=== PATIENT | female | born 1955 | race Caucasian/White ===

== ENCOUNTER 2017-01-18 10:39 | Observation (INO) | payer SELFPAY ==
[~2017-01-18] VITALS: Ht 170.2 cm; Wt 107.5 kg
--- NOTE | ~2017-01-18 | DS ---
Discharge Summary [facility] [address] [place]. [address] NAME: ADDIE GUSMAN : 53 STATUS : DIS Derrick PAT#: [id number] AGE: 61 ADM/REG DATE : 01/18/17 MR#: [id number] REPORT SERV DATE: 01/21/17 DICTATED BY: RACHEL DANG DATE: 01/20/17 REPORT STATUS : Draft TRANSCRIBED BY: ROSANGELA DATE: 01/20/17 ADMISSION DATE: 01/18/2017 DISCHARGE DATE: 01/20/2017 HISTORY OF PRESENT ILLNESS: Ms. Gusman is a 61-year-old female with a history of diabetes type 2, hypertension, major depression who presented to the hospital with a complaint of confusion. For further details, please refer to H and P dictated by Dr. Walls on 01/18/2017. HOSPITAL COURSE: Upon presentation to the emergency room given the patient's presenting symptoms, a MRI was obtained which was negative. The patient did also complain of lower extremity pain, prompting a bilateral Doppler ultrasound of lower extremities, which also came back normal. The patient also had a chest CT and pelvis without contrast, which also came back normal. The patient was started on IV fluids and given thiamin and started on her home medications with resolution of her confusion. Her potassium was repleted with resultant correction of her hypokalemia. The patient has remained hemodynamically stable. Given her hemodynamic stability and resolution of presenting symptoms, the patient will be discharged home to follow up with primary care physician. Plan has been discussed with the patient who voices understanding and is agreeable with that plan. DISCHARGE DIAGNOSES: 1. Acute encephalopathy. 2. Major depression. 3. Hypokalemia. 4. Rheumatoid arthritis. 5. Congestive heart failure. 6. Obesity. DISCHARGE MEDICATIONS: The patient's home medications were continued without the addition of any new medications. DISPOSITION: The patient will be discharged to home. ACTIVITY: As tolerated. DIET: Diabetic diet. Greater than 30 minutes was spent discharging the patient. TALIA Rachel Dang MD Discharge Summary [facility] [address] [place]. [address] NAME: ADDIE GUSMAN : 53 STATUS : DIS Derrick PAT#: [id number] AGE: 61 ADM/REG DATE : 01/18/17 MR#: [id number] REPORT SERV DATE: 01/21/17 DICTATED BY: RACHEL DANG DATE: 01/20/17 REPORT STATUS : Draft TRANSCRIBED BY: MODL DATE: 01/20/17 / [id number] CC: Rachel Dang MD
--- NOTE | ~2017-01-18 | HP ---
History And Physical [place] [id number] [facility] [place]. [address] NAME: ADDIE BENAVIDEZ : 53 STATUS : ADM Derrick PAT#: [id number] AGE: 61 ADM/REG DATE : 01/18/17 MR#: [id number] REPORT SERV DATE: 01/19/17 DICTATED BY: MOHAMUD NICOLE DATE: 01/18/17 REPORT STATUS : Draft TRANSCRIBED BY: MODJud DATE: 01/18/17 DATE OF ADMISSION: 01/18/2017 CHIEF COMPLAINT: Confusion. HISTORY OF PRESENT ILLNESS: This is a 61-year-old female with medical history of hypertension, major depression, mood disorder, chronic congestive heart failure, rheumatoid arthritis, who presented to the emergency department with complaints of confusion of a week duration. The patient reports having difficulty remembering months and days of the week, and also family members have noted that she was unable to remember her date and she continues to mix up a social security number with telephone number. She denies any similar previous episodes. She denies any slurred speech, aphasia, hypertension, or upper and lower extremity weakness. She denies any recent fall. The patient reports that she stopped taking all her medications about a week ago. The patient reports that she has been feeling very sad and depressed lately. She denies any suicidal or homicidal ideation. The patient reports intermittent episodes of nausea, diarrhea but denies vomiting. No eating of any strange food precipitating the episodes of diarrhea. Prior to presentation to the hospital, she reports that she has had diarrhea, progressively improved. She denies any fevers. She denies any abdominal pain. On arrival to the emergency room department, the patient was noticed to be only oriented x2. Per the ER physician, the patient was unable to remember time and place. The patient was unable to remember the days of the week. The patient's daughter was at the bedside who corroborated the above history. The hospitalist team was consulted to admit the patient for further evaluation. PAST MEDICAL HISTORY: 1. Hypertension. 2. Dyslipidemia. 3. Major depression. 4. Mood disorder. 5. Coronary artery disease. 6. Congestive heart failure. 7. Verbal report of history of DVT. The patient reports that she was diagnosed with blood clots in the legs about four weeks ago, was prescribed Lovenox at [facility] and was subsequently discharged on Plavix. She reports that few weeks after starting the Plavix, she noticed worsening vaginal bleed. She went to her manager of purchasing for evaluation and was subsequently taken off Plavix. Since she stopped Plavix, she has not noticed any further episodes of vaginal bleed. PAST SURGICAL HISTORY: History And Physical [address] [place]. [address] NAME: ADDIE BENAVIDEZ : 53 STATUS : ADM Derrick PAT#: [id number] AGE: 61 ADM/REG DATE : 01/18/17 MR#: [id number] REPORT SERV DATE: 01/19/17 DICTATED BY: MOHAMUD NICOLE DATE: 01/18/17 REPORT STATUS : Draft TRANSCRIBED BY: ROSANGELA DATE: 01/18/17 1. Appendectomy. 2. Cholecystectomy. 3. Bilateral tubal ligation. SOCIAL HISTORY: The patient quit smoking cigarettes in 1998. Denies drinking alcohol or illicit drug use. 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 FAMILY HISTORY: Significant for history of coronary artery disease. Father of DE at the age of 60, mother of DE at the age of 69. Brother underwent a CABG x3 in his 40s. ALLERGIES: ALLERGIC TO HYDROCHLOROTHIAZIDE. HOME MEDICATIONS: 1. Atenolol 50 mg p.o. daily. 2. Imdur 60 mg p.o. daily. 3. Plavix 75 mg p.o. daily. 4. Gabapentin 300 mg p.o. b.i.d. 5. Metformin 500 mg p.o. daily. 6. BuSpar 10 mg p.o. b.i.d. 7. Lasix 20 mg p.o. b.i.d. 8. Prednisone 2.5 mg p.o. daily. 9. Arava 20 mg, the patient reports that drapery operator took her off this medication and currently on methotrexate. However, she is currently out of her methotrexate. 10.Citalopram 40 mg p.o. daily. 11.Aspirin 325 mg p.o. daily. 12.Crestor 20 mg p.o. at bedtime. 13.Tylenol 1000 mg p.o. q.4 hours p.r.n. 14.Combivent 1 puff inhaler daily. 15.[place]-3 fatty acid 1200 mg p.o. daily. REVIEW OF SYSTEMS: A 14-point review of systems performed, essentially negative. PHYSICAL EXAMINATION: VITAL SIGNS: Blood pressure 143/79, pulse 80 beats per minute, respiration 16 cycles per minute, temperature 98.3. GENERAL: Not in any acute distress. Afebrile. Lying in bed comfortably. HEENT: Extraocular muscles intact. Pupils equal, round, and reactive. Not pale. Anicteric. Oral mucosa moist. NECK: Supple. No cervical lymphadenopathy. LUNGS: Clear to auscultation bilaterally. CARDIOVASCULAR: Regular rate and rhythm. S1, S2. No rubs. No murmurs. No gallops. ABDOMEN: Bowel sounds normoactive. Obese, nontender. No palpably enlarged organomegaly. LOWER EXTREMITIES: No pedal edema. Peripheral pulses palpable. NEURO: Alert and oriented x3. Cranial nerve II through XII intact. Strength in all extremities 5/5. Reflexes normal. Sensation intact. History And Physical [address] [address] NAME: ADDIE BENAVIDEZ : 53 STATUS : ADM Derrick PAT#: [id number] AGE: 61 ADM/REG DATE : 01/18/17 MR#: [id number] REPORT SERV DATE: 01/19/17 DICTATED BY: MOHAMUD NICOLE DATE: 01/18/17 REPORT STATUS : Draft TRANSCRIBED BY: MODJud DATE: 01/18/17 LABORATORY DATA: Chemistry: Sodium 136, potassium 3.0, chloride 99, bicarbonate 29, BUN 10, creatinine 0.77, GFR 96, glucose 93, calcium 1.3, lipase 85. Troponin less than 0.02. TSH is 0.675, acetaminophen less than 2.0, salicylate less than 1.7, alcohol less than 10. ABG: pH 7.55, PaCO2 31, PaO2 73. Hematology: WBC 8.0, hemoglobin 12.6, hematocrit 38.0, platelets 240. INR 1.1. PT 14.5. IMAGING: Chest x-ray. Impression: Low lung volumes with right basilar atelectasis and early infiltrate. CT abdomen and pelvis. Impression: The CT of the abdomen and pelvis does not demonstrate a mass lesion, adenopathy, or acute inflammatory process. No bowel obstruction or bowel inflammation. Liver and spleen are upper limits of normal without focal lesions. CTA of the chest. Impression: 1. No pulmonary embolism. 2. Small calcified granulomas throughout the lungs. A 5 mm noncalcified nodule in the left lower lobe, Lung-RADS category 2, consider low-dose CT in 12 months. 3. Nonspecific mildly enlarged right paratracheal lymph nodes measuring up to 1.1 cm in short axis dimension. No other enlarged mediastinal, hilar, or axillary lymph nodes. 4. Dense 3-vessel coronary artery calcification and . 5. Heterogeneous nodular enlargement of the visualized thyroid gland. Consider nonemergent thyroid ultrasound to evaluate. Brain CT without contrast. Impression: 1. No acute hemorrhage, infarct, or mass lesion. 2. Bilateral maxillary sinus mucosal thickening. Urine drug screen negative. ASSESSMENT AND PLAN: 1. Acute encephalopathy. 2. Hypokalemia. 3. Hypomagnesemia. 4. Major depression. 5. Hirsutism. 6. Verbal report of recent deep vein thrombosis. Not on anticoagulation at this time, likely due to history of vaginal bleed? 7. Major depression. 8. Hypertension. 9. History of mood disorder. 10.History of coronary artery disease. 11.History of congestive heart failure. 12.Pulmonary nodule. 13.Gastroenteritis. History And Physical [address] [address] NAME: ADDIE BENAVIDEZ : 53 STATUS : ADM Derrick PAT#: [id number] AGE: 61 ADM/REG DATE : 01/18/17 MR#: [id number] REPORT SERV DATE: 01/19/17 DICTATED BY: MOHAMUD NICOLE DATE: 01/18/17 REPORT STATUS : Draft TRANSCRIBED BY: MODJud DATE: 01/18/17 PLAN: 1. Acute encephalopathy, etiology unclear. Possible differentials include metabolic encephalopathy due to electrolyte abnormality following recent gastroenteritis. Also possible etiology is pseudodementia due to worsening of major depression precipitated by acutely stopping antidepressant medication. CT scan of the brain shows no acute intracranial infarct or hemorrhage. I will aggressively replete the patient's electrolytes, continue patient on IV fluid resuscitation and continue to monitor. 2. Also noted in the ER that following fluid resuscitation and electrolyte replacement, the patient's mental status seems to have improved marginally. She is now alert, oriented x3. 3. Major depression. No history of suicidal ideation or homicidal ideation. Although, the patient is feeling very depressed and sad, I will recommence patient's Celexa 40 mg p.o. daily. 4. Hypokalemia, replete the patient's potassium per electrolyte protocol. 5. Hypomagnesemia, replete the patient's magnesium per electrolyte protocol. 6. Verbal report of recent history of DVT, not on chronic anticoagulation, currently off anti-platelet therapy due to history of vaginal bleed. We will obtain a bilateral Doppler ultrasound of the lower extremity to rule out a deep vein thrombosis. I will also recommend the patient's medical records to be obtained from [facility]. 7. Rheumatoid arthritis. I will increase the patient's home dose of prednisone from 2.5 mg to 5 mg p.o. daily. I will not restart methotrexate as the patient has been off this medication prior to presentation. No joint pain at this time. No acute flare of rheumatoid arthritis. We will continue to monitor. 8. Hirsutism and verbal report of weight loss. I doubt this patient has lost her weight as per report. She is unable to ascertain how much weight she has lost and for how long she has been losing weight. However, given the presence of hirsutism and verbal report of weight loss and loss of appetite, there may be questionable gynecological disorder, query ovarian tumors which may present with vague symptoms of loss of appetite and acute confusion. The patient has a known manager of purchasing that she is following up with for vaginal bleeds. I will review the patient's CT of the abdomen and pelvis with the radiologist for comments on the ovaries. I will not order any further workup at this time, rather I will recommend the patient to follow up with a manager of purchasing. 9. Chronic congestive heart failure. No evidence of acute decompensated heart failure. We will commence the patient's home dose of Lasix during this admission. 10.DVT prophylaxis, subcu heparin. ADMISSION DISPOSITION: Observation status cardiac tele. CODE STATUS: Full code. IOO/MODL Mohamud Ferrera History And Physical [address] [address] NAME: ADDIE BENAVIDEZ : 53 STATUS : ADM Derrick PAT#: [id number] AGE: 61 ADM/REG DATE : 01/18/17 MR#: [id number] REPORT SERV DATE: 01/19/17 DICTATED BY: MOHAMUD NICOLE DATE: 01/18/17 REPORT STATUS : Draft TRANSCRIBED BY: MODL DATE: 01/18/17 MD Titi / [id number] CC: Mohamud Nicole MD
[2017-01-18 12:38] LABS: BASOPHILS 0.3 %; BASOPHILS ABSOLUTE 0.02 10/3/uL (0.0-0.16); EOSINOPHILS 2.5 %; ER CBC TAT 0 Hrs 08 Mins; HEMOGLOBIN 12.6 g/dL (12.0-16.0); IMMATURE GRANULOCYTES 0.4 %; IMMATURE GRANULOCYTES ABSOLUTE 0.03 10/3/uL (0.0-0.11); LYMPHOCYTES 16.5 %; LYMPHOCYTES ABSOLUTE 1.32 10/3/uL (0.67-4.30); MANUAL DIFF NO %; MEAN CORPUS HGB CONC 33.2 g/dL (32.0-36.0); MEAN CORPUSCULAR HEMOGLOB 29.1 pg (26.0-34.0); MEAN CORPUSCULAR VOLUME 87.8 fL (80-100); MEAN PLATELET VOLUME 9.5 fL (9.2-13.0); MONOCYTES 11.2 %; MONOCYTES ABSOLUTE 0.89 10/3/uL (0.21-1.20); NEUTROPHILS 69.1 %; NEUTROPHILS ABSOLUTE 5.52 10/3/uL (2.02-8.40); PLATELET COUNT 240 10/3/uL (150-400); RBC DISTRIBUTION WIDTH 14.9 % (12.0-16.0); RED CELL COUNT 4.33 10/6/uL (4.0-5.6)
[2017-01-18 12:46] LABS: INTERNATIONAL NORMAL RATI 1.1 UNITS (-); PROTIME (NOT ORD) 14.5 SEC (12.0-14.5)
[2017-01-18 12:55] LABS: AMPHETAMINES (NOT ORD) NEG (NEG); BARBITURATES (NOT ORDERED NEG (NEG); BENZODIAZEPINES (NOT ORD) NEG (NEG); CANNABINOIDS (THC) NEG (NEG); COCAINE (NOT ORDERED) NEG (NEG); OPIATES NEG (NEG); PHENCYCLIDINE(PCP) NEG (NEG); TRICYCLICS NEG (NEG)
[2017-01-18 12:56] LABS: BUN (BLOOD UREA NITROGEN) 10 MG/DL (6-23); CHEST PAIN PROFILE TAT 0 Hrs 26 Mins; CHLORIDE, SERUM 99 MMOL/L (96-112); CO2 (CARBON DIOXIDE) 29 MMOL/L (24-34); CREATININE 0.77 MG/DL (0.55-1.02); GFR AFRICAN AMERICAN 96 ML/MIN (>=60); GFR NON AFRICAN AMERICAN 83 ML/MIN (>=60); GLUCOSE, SERUM 93 MG/DL (60-99); SODIUM, SERUM 136 MMOL/L (135-148); TROPONIN I <0.02 NG/ML (<0.05)
[2017-01-18 12:57] LABS: ACETAMINOPHEN LEVEL (TYLENOL) < 2.0 MCG/ML (10.0-20.0); ALCOHOL < 10 MG/DL (0); SALICYLATE < 1.7 MG/DL (-)
[2017-01-18 13:03] LABS: D-DIMER QUANTITATIVE > 20.00 ug/mLFEU (< 0.50)
[2017-01-18 14:10] LABS: B NATRIURETIC PEPTIDE (BNP) 169.1 PG/ML (< 100.0)
[2017-01-18] MEDS ORDERED: IMDUR60 PO (14:10)
[2017-01-18] MEDS ORDERED: ATEN50 PO (14:10)
[2017-01-18] MEDS ORDERED: NEUR300 PO (14:10)
[2017-01-18] MEDS ORDERED: PLAVIX PO (14:10)
[2017-01-18] MEDS ORDERED: GLUCPH PO (14:11)
[2017-01-18] MEDS ORDERED: BUSPAR10 PO (14:11)
[2017-01-18] MEDS ORDERED: PREDNISONE2.5 MG PO (14:12)
[2017-01-18] MEDS ORDERED: L20 PO (14:12)
[2017-01-18] MEDS ORDERED: ASABAYER PO (14:12)
[2017-01-18] MEDS ORDERED: CELEXA40 MG PO (14:12)
[2017-01-18] MEDS ORDERED: ARAVA20 PO (14:12)
[2017-01-18] MEDS ORDERED: CRESTOR20 MG PO (14:13)
[2017-01-18] MEDS ORDERED: ACET500CAP PO (14:13)
[2017-01-18 14:14] LABS: ASCORBIC ACID (UR NOT ORDER) NEG (NEG); BILIRUBIN, URINE NEGATIVE (NEG); KETONE, URINE 20 MG/DL (NEG); LEUKOCYTE ESTERASE(NOT OR NEG (NEG); NITRITE (URINE) NEG (NEG); WBC (NOT ORDERED) (RFLEX) 3 (0-5)
[2017-01-18] MEDS ORDERED: COMBIVENT RESPIM4 GM INH (14:15)
[2017-01-18] MEDS ORDERED: FISH OIL1200 MG PO (14:15)
[2017-01-18 17:21] LABS: ALLENS TEST Pos; BE (BASE EXCESS) 4.6 MEQ/L (0 +/- 2.5); CARBOXYHEMOGLOBIN 1.2 % (0-3); HCO3 (ACTUAL BICARBONATE) 26.4 MEQ/L (23-27); HEMOBLOGIN CONTENT 12.8 G/DL (12-16); INSTRUMENT SERIAL # 8087; METHEMOGLOBIN 0.1 % (0-3); O2 CONTENT 16.9 VOL% (18-24); OPERATOR ID 32214; PCO2 (CO2 TENSION) 31 MMHG (35-45); PO2 (O2 TENSION) 73 MMHG (79-93); SAMPLE Arterial; pH 7.55 (7.37-7.43)
[2017-01-18 18:27] LABS: ULTRASENSITIVE TSH 0.675 MCIU/ML (0.358-3.740)
[2017-01-18 20:32] LABS: C-REACTIVE PROTEIN 35.9 MG/L (<8.0); CPK 97 U/L (0-200); FREE T4 1.61 NG/DL (0.76-1.46); PHOSPHORUS, SERUM 2.6 MG/DL (2.5-4.5)
[2017-01-18 21:29] LABS: PROCALCITONIN <0.05 ng/mL (<0.5)
[2017-01-18 21:56] LABS: SED RATE 48 MM/HR (0-20)
[2017-01-19 06:42] LABS: BASOPHILS 0.6 %; BASOPHILS ABSOLUTE 0.04 10/3/uL (0.0-0.16); EOSINOPHILS ABSOLUTE 0.36 10/3/uL (0.0-0.53); HEMATOCRIT 35.9 % (36.0-48.0); HEMOGLOBIN 11.7 g/dL (12.0-16.0); IMMATURE GRANULOCYTES 0.4 %; IMMATURE GRANULOCYTES ABSOLUTE 0.03 10/3/uL (0.0-0.11); LYMPHOCYTES 14.3 %; LYMPHOCYTES ABSOLUTE 1.03 10/3/uL (0.67-4.30); MANUAL DIFF NO %; MEAN CORPUS HGB CONC 32.6 g/dL (32.0-36.0); MEAN CORPUSCULAR HEMOGLOB 28.4 pg (26.0-34.0); MEAN CORPUSCULAR VOLUME 87.1 fL (80-100); MEAN PLATELET VOLUME 9.4 fL (9.2-13.0); MONOCYTES 14.7 %; MONOCYTES ABSOLUTE 1.06 10/3/uL (0.21-1.20); NEUTROPHILS ABSOLUTE 4.68 10/3/uL (2.02-8.40); PLATELET COUNT 219 10/3/uL (150-400); RBC DISTRIBUTION WIDTH 15.5 % (12.0-16.0); RED CELL COUNT 4.12 10/6/uL (4.0-5.6); WHITE BLOOD CELLS 7.2 10/3/uL (4.5-10.5)
[2017-01-19 06:54] LABS: A/G RATIO 0.7 (0.7-1.9); ALBUMIN 2.9 G/DL (3.5-5.0); ALKALINE PHOSPHATASE 69 U/L (45-117); BUN (BLOOD UREA NITROGEN) 9 MG/DL (6-23); CALCIUM, SERUM 8.2 MG/DL (8.5-10.4); CHLORIDE, SERUM 101 MMOL/L (96-112); CO2 (CARBON DIOXIDE) 31 MMOL/L (24-34); CREATININE 0.71 MG/DL (0.55-1.02); GFR AFRICAN AMERICAN 106 ML/MIN (>=60); GFR NON AFRICAN AMERICAN 91 ML/MIN (>=60); GLOBULIN 3.9 G/DL (2.5-4.1); GLUCOSE, SERUM 84 MG/DL (60-99); POTASSIUM, SERUM 3.2 MMOL/L (3.5-5.3); SGOT(AST) 21 U/L (5-40); SGPT(ALT) 14 U/L (5-65); SODIUM, SERUM 138 MMOL/L (135-148); TOTAL BILIRUBIN 0.7 MG/DL (0-1.2); TOTAL PROTEIN 6.8 G/DL (6.0-8.5)
[2017-01-20 06:55] LABS: HEMATOCRIT 38.3 % (36.0-48.0); HEMOGLOBIN 12.3 g/dL (12.0-16.0); MEAN CORPUS HGB CONC 32.1 g/dL (32.0-36.0); MEAN CORPUSCULAR HEMOGLOB 28.9 pg (26.0-34.0); MEAN PLATELET VOLUME 9.5 fL (9.2-13.0); PLATELET COUNT 235 10/3/uL (150-400); RBC DISTRIBUTION WIDTH 15.7 % (12.0-16.0); RED CELL COUNT 4.25 10/6/uL (4.0-5.6); WHITE BLOOD CELLS 7.5 10/3/uL (4.5-10.5)
[2017-01-20 07:04] LABS: MANUAL DIFF YES %; MEAN CORPUSCULAR VOLUME 90.1 fL (80-100)
[2017-01-20 07:09] LABS: A/G RATIO 0.7 (0.7-1.9); ALBUMIN 3.1 G/DL (3.5-5.0); ALKALINE PHOSPHATASE 72 U/L (45-117); CALCIUM, SERUM 8.6 MG/DL (8.5-10.4); CHLORIDE, SERUM 103 MMOL/L (96-112); CO2 (CARBON DIOXIDE) 25 MMOL/L (24-34); CREATININE 0.73 MG/DL (0.55-1.02); GFR AFRICAN AMERICAN 102 ML/MIN (>=60); GFR NON AFRICAN AMERICAN 88 ML/MIN (>=60); GLOBULIN 4.5 G/DL (2.5-4.1); GLUCOSE, SERUM 83 MG/DL (60-99); POTASSIUM, SERUM 4.1 MMOL/L (3.5-5.3); SGOT(AST) 18 U/L (5-40); SGPT(ALT) 14 U/L (5-65); SODIUM, SERUM 137 MMOL/L (135-148); TOTAL PROTEIN 7.6 G/DL (6.0-8.5)
[2017-01-20 07:10] LABS: BUN (BLOOD UREA NITROGEN) 12 MG/DL (6-23)
[2017-01-20 07:28] LABS: BASOPHILS 1 %; BASOPHILS ABSOLUTE (CALC) 0.08 10/3/uL (0.0-0.16); EOSINOPHILS 7 %; EOSINOPHILS ABSOLUTE (CALC) 0.53 10/3/uL (0.0-0.53); LYMPHOCYTES 17 %; LYMPHOCYTES ABSOLUTE (CALC) 1.28 10/3/uL (0.67-4.30); MONOCYTES 13 %; MONOCYTES ABSOLUTE (CALC) 0.98 10/3/uL (0.21-1.20); NEUTROPHILS ABSOLUTE (CALC) 4.65 10/3/uL (2.02-8.40); PLATELET ESTIMATE ADQ (ADEQUATE); RBC MORPHOLOGY NORM (NORMAL); SEGMENTED NEUTROPHIL (0) 62 %; TOTAL NUCLEATED CELLS 100
== END 2017-01-20 15:21 | disposition home or self-care (01) ==
LOC: ER 10:39 → 1SO 18:38
PROVIDERS: Hospitalist; Nurse Practitioner Family
DX: G93.40 Encephalopathy, unspecified (principal); I11.0 Hypertensive heart disease with heart failure; I50.9 Heart failure, unspecified; I25.10 Atherosclerotic heart disease of native coronary artery without angina pectoris; M06.9 Rheumatoid arthritis, unspecified; E87.6 Hypokalemia; E66.9 Obesity, unspecified; E83.42 Hypomagnesemia; L68.0 Hirsutism; R91.1 Solitary pulmonary nodule; K52.9 Noninfective gastroenteritis and colitis, unspecified; F32.9 Major depressive disorder, single episode, unspecified; E78.5 Hyperlipidemia, unspecified; Z90.49 Acquired absence of other specified parts of digestive tract; Z98.51 Tubal ligation status; Z87.891 Personal history of nicotine dependence; Z82.49 Family history of ischemic heart disease and other diseases of the circulatory system; Z79.01 Long term (current) use of anticoagulants; Z79.84 Long term (current) use of oral hypoglycemic drugs; Z79.82 Long term (current) use of aspirin; Z79.899 Other long term (current) drug therapy
CPT/HCPCS: 36600; 70450; 71010; 71275; 74176; 80048; 80053; 80305; 80307; 81001; 82140; 82550; 82805; 82962; 83605; 83690; 83735; 83880; 84100; 84132; 84145; 84439; 84443; 84484; 85025; 85379; 85610; 85652; 85730; 86140; 87040; 93005; 93970; 96372; 96374; 96376; 99285; A9270-GY; G0378; J2405; J3475